=== PATIENT | male | born 1975 | race Caucasian/White ===

== ENCOUNTER 2016-12-16 23:34 | Emergency (ER) | payer SELFPAY ==
[~2016-12-16] VITALS: Ht 170.2 cm; Wt 56.5 kg
[~2016-12-16 23:34] MED LIST: ACET1TAB40 PO; NEOM28OI TOP
[2016-12-16 23:43] VITALS: Ht 170.2 cm; Wt 56.5 kg
== END 2016-12-17 00:18 | disposition left against medical advice (07) ==
LOC: E/R 23:34
DX: Z53.21 Procedure and treatment not carried out due to patient leaving prior to being seen by health care provider (principal)